=== PATIENT | female | born 2000 | race American Indian/Alaskan Native ===

== ENCOUNTER → 2019-07-05 | Day surgery (SDC) | payer BC ==
[2019-06-21 11:44] LABS: BASOPHILS % 0.8 % (0.0-1.0); EOSINOPHILS # (AUTO) 0.1 (0.0-0.4); HEMATOCRIT 40.9 % (34.2-44.1); HEMOGLOBIN 13.7 g/dL (12.0-16.0); LYMPHOCYTES # (AUTO) 2.3 (1.0-3.2); LYMPHOCYTES % 45.7 % (18.0-39.1); MEAN CORPUSCULAR HEMOGLOBIN 29.7 pg (28-32); MEAN CORPUSCULAR HGB CONC 33.5 g/dL (31-35); MEAN CORPUSCULAR VOLUME 88.5 fL (81-99); MONOCYTES # (AUTO) 0.3 (0.2-0.8); MONOCYTES % 6.7 % (4.4-11.3); NEUTROPHILS # (AUTO) 2.2 (2.1-6.9); NEUTROPHILS % 44.6 % (38.7-80.0); PLATELET COUNT 267 x10e3/uL (140-360); RED BLOOD COUNT 4.62 x10e6/uL (3.6-5.1); RED CELL DISTRIBUTION WIDTH 12.5 % (11.7-14.4)
[2019-06-21 12:13] LABS: ANION GAP 9.5 mmol/L (8-16); BLOOD UREA NITROGEN 10 mg/dL (7-26); BUN/CREATININE RATIO 13 (6-25); CALCIUM 9.8 mg/dL (8.4-10.2); CARBON DIOXIDE 25 mmol/L (22-29); CHLORIDE 108 mmol/L (98-107); CREATININE, SERUM 0.75 mg/dL (0.57-1.11); EST GLOMERULAR FILTRATION RATE > 60 ML/MIN (60-); GLUCOSE 103 mg/dL (74-118); POTASSIUM 4.5 mmol/L (3.5-5.1); SODIUM 138 mmol/L (136-145)
[~2019-07-05] MED LIST: ACETAMINOPHEN 1000 MG/100 ML IV ONE; ACETAMINOPHEN/CODEINE 300MG - 30MG TAB ONE; ALBUTEROL0.63 MG/3 INH; BUPIVACAINE 0.25% 30ML SDV INJ ONE; DEXAMETHASONE SOD PHOS INJ 4 MG/ML VIAL ONE; FENTANYL CITRATE/PF 100MCG/2 ML INJ ONE; HAILEY 24 FE 11 EACH PO; LIDOCAINE HCL 2% LOCAL INJ 5 ML SDV VIAL INJ ONE; MIDAZOLAM HCL 2 MG/2 ML VIAL ONE; ONDANSETRON HCL INJ 2MG/ML 2ML 2 MG/ML VIAL ONE; PROPOFOL IV EMULSION 10 MG/ML 20 ML VIAL ONE; SEVOFLURANE INHAL SOLN 250 ML PEN BTL ONE
--- OUTSIDE RECORDS SUMMARY | 2019-07-05 05:52 | XMS REPORT ---
[facility] Address Unknown Phone Unavailable Care Team Providers Care Retail Service Technician Name Role Phone Unavailable Unavailable Payers Payer Name Policy Type Policy Number Effective Date Expiration Date Problems This patient has no known problems. Allergies, Adverse Reactions, Alerts Allergy Name Allergy Type Status Severity Reaction(s) Onset Date Inactive Date Treating Clinician Comments No Known Drug Intolerances DA Active U 2000-07-14 00:00:00 NO KNOWN CONTRAST MEDIA ALLERG DA Active U 2000-07-14 00:00:00 NO KNOWN OTHER ALLERGIES DA Active U 2000-07-14 00:00:00 No Known Drug Allergies DA Active U 2000-07-14 00:00:00 No Known Food Allergies DA Active U 2000-07-14 00:00:00 Medications This patient has no known medications. Results Test Description Test Time Test Comments Text Results Atomic Results Result Comments SURGICAL SPECIMENS 2018-05-10 07:49:00 RUN DATE: 05/10/18 [facility] *LIVE* PAGE 1 RUN TIME: 748 Specimen Inquiry RUN USER: INTERFACE PATIENT: [facility] #: [id number] LOC: [place] #: [id number] AGE/SX: 18/F ROOM: RE05/07/18REG DR: Zuleika Kay MD : 99 BED: DIS: STATUS: PRE REF TLOC: SPEC #: [id number] RECD: 05/08/18 STATUS: NILA [facility] #: [id number] LIZETTE: 05/08/[address] [facility] [address]: Zuleika Kay MD ENTERED: 05/10/18 SP TYPE: SURG SPEC OTHR DR: No Primary or Family PhysicianORDERED: GM LEVEL 4 CODES: [id number] - BREAST, NOS COPIES TO: No Primary or Family Physician Zuleika Kay MD [address] [place] [address] PROCEDURES: GM LEVEL 4 (Incomplete) TISSUES: 1. BREAST, NOS - Breast, right, 3:00, 2 cm FN, core bx. FINAL DIAGNOSIS Breast, right, 3:00, 2 cm FN, core bx.: Fibroadenoma. GROSS AND MICROSCOPIC GROSS EXAMINATION: Received in formalin labeled right breast 3:00 is a 2.5 cm aggregate of fibroadipose tissue submitted in one cassette. MICROSCOPIC EXAMINATION: Sections of the right breast tissue reveal changes of fibroadenoma. POST-OP DIAGNOSIS ULTRACLIP-coil PRE-OP DIAGNOSIS Palpable 3:00 mass, favor fibroadenoma REVIEWED BY: SARA CONTINUED ON NEXT PAGE RUN DATE: 05/10/18 [facility] *LIVE* PAGE 2 RUN TIME: 748 Specimen Inquiry RUN USER: INTERFACE SPEC #: [id number] PATIENT: LUDWIG ARGUETA #[id number] (Continued) ----- Signed SIGNATURE ON FILE Jamin Montiel DO 05/10/18 0749 END OF REPORT
[2019-07-05 09:45] VITALS: BP 117/72
--- NOTE | 2019-07-05 10:36 | Operative Report ---
DATE OF PROCEDURE: 07/05/2019 SURGEON: Vince Goldman MD PREOPERATIVE DIAGNOSIS: Fibroadenoma of the right breast. POSTOPERATIVE DIAGNOSIS: Fibroadenoma of the right breast. PROCEDURE PERFORMED: Partial mastectomy. WOMEN'S BASKETBALL COACH: Adithya Del Catsillo. ESTIMATED BLOOD LOSS: Minimal. DRAINS: None. COMPLICATIONS: None. 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 This mass was biopsied and was consistent with a fibroadenoma. The patient was not comfortable observing the mass and because there was a large-sized concerns about growths, it was decided to proceed with the excisional biopsy of the mass. INTRAOPERATIVE FINDINGS: The patient had a mass that was located about 4-5 cm from the nipple between 2 and 3 o'clock on the right breast over the medial quadrant. No other palpable masses were seen. The findings are consistent with fibroadenoma. DESCRIPTION OF PROCEDURE: With the patient lying on the operative table in the supine position after administration of general anesthesia, she was prepped and draped for right partial mastectomy. Time-out was performed. An incision was then made in a slightly curved fashion along the inner quadrant of the left upper breast over the palpable mass. The dissection was carried down through the skin, subcutaneous tissue until the mass was identified and then it was excised using electrocautery with gross minimal margin in its entirety. After this was done, the wound irrigated and any bleeding points were cauterized. The wound was closed in layers using 2-0 chromic for the breast tissue and 2-0 plain catgut for the breast, subcutaneous fat, and the skin was closed using a subcuticular 5-0 Monocryl. Dermabond was placed as a dressing. The patient tolerated the procedure well and taken to the recovery room in stable condition. MD DINA Marie/CRISTINA /[id number]
== END | disposition home or self-care (01) ==
LOC: OR 05:42
PROVIDERS: ATTEND Surgery
DX: D24.1 Benign neoplasm of right breast (principal); J45.998 Other asthma; Z91.018 Allergy to other foods; Z01.812 Encounter for preprocedural laboratory examination
CPT/HCPCS: 19301; 36415; 80048; 81025; 85025; 88305; J0131; J1100; J2001; J2250; J2405; J2704; J3010